=== PATIENT | female | born 1930 | race Caucasian/White ===

== ENCOUNTER → 2016-05-30 | Outpatient (CLI) | payer MEDICARE ==
[~2016-05-30] MED LIST: BACT800T5 PO; BUPR75TA PO; FAMO20TA2 PO; MOBI7.5T PO; SERT-132 PO; THYR1TAB21 PO; TRAZ50TA12 PO
[2016-05-30 14:07] LABS: BLOOD, URINE TRACE (NEG); COMMENT (UR) CULT NOT INDICATED; CULTURE IF INDICATED CULT NOT INDICATED; GLUCOSE,URINE NEG (NEG); HYALINE CAST, URINE 1 /lpf (RARE); KETONE, URINE NEG (NEG); MUCUS URINE FEW /lpf (OCC); NITRITE,URINE NEG (NEG); SQUAMOUS EPITHELIAL CELL URINE <1 /hpf (0-5); URINE COLOR YELLOW (YELLW/STRAW)
== END ==
LOC: CLAB 13:39
PROVIDERS: ATTEND Family Medicine
DX: N39.0 Urinary tract infection, site not specified (principal)
CPT/HCPCS: 81001

== ENCOUNTER 2017-02-12 11:50 | Emergency (ER) | payer MEDICARE ==
[~2017-02-12] VITALS: Ht 154.9 cm; Wt 74.0 kg
[~2017-02-12 11:50] MED LIST changes: -BACT800T5 PO; -BUPR75TA PO; +FLUO-1 PO; -MOBI7.5T PO; +NATU65TA PO; -SERT-132 PO; -THYR1TAB21 PO
[2017-02-12 11:52] VITALS: BP 151/78; PULSE 67; RESP 20; TEMP 97.7; O2SAT 98
[2017-02-12] MEDS ORDERED: ONDANSETRON HCL 4 MG/2 ML VIAL IVP ONE (13:45)
[2017-02-12] MEDS ORDERED: SODIUM CHLORIDE 0.9% FLUSH 10 ML FLUSH IV FLUSH PRN (13:45)
[2017-02-12] MEDS ORDERED: CARA1TAB6 PO (14:35)
[2017-02-12 15:30] LABS: BASOPHIL % 0.5 % (0.0-2.0); EOSINOPHIL # 0.1 TH/MM3 (0-0.4); EOSINOPHIL % 1.8 % (0.0-4.0); HEMATOCRIT 42.1 % (35.0-46.0); HEMO FLAGS DIFF FINAL; LYMPH % 29.9 % (9.0-44.0); MEAN CELL VOLUME 94.9 FL (80.0-100.0); MEAN CORPUSCULAR HEMOGLOBIN 31.3 PG (27.0-34.0); MONO % 9.5 % (0.0-8.0); NEUT % 58.3 % (16.0-70.0); PLATELET COUNT 293 TH/MM3 (150-450); RED BLOOD COUNT 4.44 MIL/MM3 (4.00-5.30); RED CELL DISTRIBUTION WIDTH 14.7 % (11.6-17.2); WHITE BLOOD COUNT 6.8 TH/MM3 (4.0-11.0)
--- NOTE | 2017-02-12 15:41 | RADRPT ---
EXAM DATE/TIME: 02/12/2017 15:30 [facility] COMPARISON: CT BRAIN W/O CONTRAST, March 17, 2016, 19:09. INDICATIONS : Confusion RADIATION DOSE: 33.89 CTDIvol (mGy) MEDICAL HISTORY : None SURGICAL HISTORY : Hysterectomy. ENCOUNTER: Initial ACUITY: 1 day PAIN SCALE: 0/10 LOCATION: cranial TECHNIQUE: Multiple contiguous axial images were obtained of the head. Using automated exposure control and adj ustment of the mA and/or kV according to patient size, radiation dose was kept as low as reasonably a chievable to obtain optimal diagnostic quality images. DICOM format image data is available electro nically for review and comparison. FINDINGS: CEREBRUM: The ventricles are normal for age. No evidence of midline shift, mass lesion, hemorrhage or acute in farction. No extra-axial fluid collections are seen. POSTERIOR FOSSA: The cerebellum and brainstem are intact. The 4th ventricle is midline. The cerebellopontine angle i s unremarkable. EXTRACRANIAL: The visualized portion of the orbits is intact. SKULL: The calvaria is intact. No evidence of skull fracture. CONCLUSION: No acute disease. David Plaza Jr., MD on February 12, 2017 at 15:37 Board Certified Radiologist. This report was verified electronically.
[2017-02-12 15:48] LABS: ALT (GPT) 22 U/L (10-53); ANION GAP 9 MEQ/L (5-15); AST (GOT) 16 U/L (15-37); BICARBONATE 27.4 MEQ/L (21.0-32.0); BLOOD UREA NITROGEN 17 MG/DL (7-18); CHLORIDE 106 MEQ/L (98-107); GLOMERULAR FILTRATION RATE 93 ML/MIN (>89); POTASSIUM 3.8 MEQ/L (3.5-5.1); SODIUM (NA) 142 MEQ/L (136-145)
[2017-02-12 15:50] LABS: ALKALINE PHOSPHATASE 89 U/L (45-117); TOTAL BILIRUBIN ADULT 0.3 MG/DL (0.2-1.0)
[2017-02-12 16:52] LABS: BLOOD, URINE NEG (NEG); COMMENT (UR) CULT NOT INDICATED; CULTURE IF INDICATED CULT NOT INDICATED; GLUCOSE,URINE NEG (NEG); KETONE, URINE NEG (NEG); MUCUS URINE FEW /lpf (OCC); NITRITE,URINE NEG (NEG); PH, URINE 6.5 (5.0-8.5); SQUAMOUS EPITHELIAL CELL URINE <1 /hpf (0-5); URINE COLOR YELLOW (YELLW/STRAW)
--- NOTE | 2017-02-12 17:28 | PD ---
HPI Chief Complaint: Altered Mental Status Time Seen by Provider: 14:27 Travel History International Travel<30 days: No Contact w/Intl Traveler<30days: No Traveled to known affect area: No History of Present Illness HPI And is an 86-year-old female who comes in after her family found her laying face down in her bed. She says that she was feeling very depressed this morning. She says she is going back to the bathroom when she just fell onto the bed and didn't feel like. She says she may have had some dizziness at the time. But says she was mostly just feeling depressed. Her stepdaughter reports that she has been battling depression for a while and has been seeing psychiatrists. She does report that she will stop eating or drinking due to her depression. She has not made any active threats or attempts to kill herself. She denies any thoughts of wanting to hurt herself or anyone else. She says she is feeling fine now. She has no pain anywhere. She did not hit her head. She denies any blurred vision or chest pain. She denies any shortness of breath or burning when she urinates. [facility] Past Medical History Depression: Yes Diminished Hearing: Yes (bilateral hearing aides) Gastrointestinal Disorders: Yes ("GI PARASITE" 1 YEAR AGO CAUSING DIARRHEA) Immunizations Current: Yes Thyroid Disease: Yes (hypodthyroidism) Menopausal: Yes Past Surgical History Hysterectomy: Yes Other Surgery: Yes (hand surgery) Social History Alcohol Use: Yes (wine with dinner sometimes) Tobacco Use: No Substance Use: No Allergies-Medications (Allergen,Severity, Reaction): Coded Allergies: No Known Allergies (Unverified Adverse Reaction, Unknown, 02/12/17) Reported Meds & Prescriptions Reported Meds & Active Scripts Active Reported Carafate (Sucralfate) 1 Gram Tab 1 Gm PO FIVE TIMES PER DAY On empty stomach Prozac (Fluoxetine HCl) 10 Mg Cap 10 Mg PO DAILY Trazodone (Trazodone HCl) 50 Mg Tab 25 Mg PO HS Nature-Throid (Thyroid) 65 Mg Tab 65 Mg PO DAILY Review of Systems Except as stated in HPI: all other systems reviewed are Neg General / Constitutional: No: Fever, Chills Eyes: No: Blurred Vision HENT: Positive: Lightheadedness, No: Headaches Cardiovascular: No: Chest Pain or Discomfort Respiratory: No: Shortness of Breath Gastrointestinal: No: Nausea, Vomiting Genitourinary: No: Dysuria Skin: No Rash, No Change in Pigmentation Neurologic: No: Weakness Physical Exam Narrative GENERAL: Awake and alert, in no acute distress. SKIN: Focused skin assessment warm/dry. HEAD: Atraumatic. Normocephalic. EYES: Pupils equal and round and reactive. No scleral icterus. Extraocular movements intact. ENT: Mucous membranes pink and moist. NECK: Trachea midline. No JVD. CARDIOVASCULAR: Regular rate and rhythm. No murmur appreciated. RESPIRATORY: No accessory muscle use. Clear to auscultation. Breath sounds equal bilaterally. GASTROINTESTINAL: Abdomen soft, non-tender, nondistended. MUSCULOSKELETAL: No obvious deformities. No clubbing. No cyanosis. No edema. NEUROLOGICAL: Awake and alert. No obvious cranial nerve deficits. Motor grossly within normal limits. Normal speech. PSYCHIATRIC: Appropriate mood and affect; insight and judgment normal. Data Data Last Documented VS Vital Signs Date Time Temp Pulse Resp B/P (MAP) Pulse Ox O2 Delivery O2 Flow Rate FiO2 02/12/17 11:52 97.7 67 20 151/78 (102) 98 Room Air Orders Orders Complete Blood Count With Diff (02/12/17 13:38) Comprehensive Metabolic Panel (02/12/17 13:38) Lipase (02/12/17 13:38) Lactic Acid (02/12/17 13:38) Urinalysis - C+S If Indicated (02/12/17 13:38) Iv Access Insert/Monitor (02/12/17 13:38) Ondansetron Inj (Zofran Inj) (02/12/17 13:45) Sodium Chloride 0.9% Flush (Ns Flush) (02/12/17 13:45) Electrocardiogram (02/12/17 ) Troponin I (02/12/17 15:03) Ct Brain W/O Iv Contrast(Rout) (02/12/17 ) Labs Laboratory Tests Test 02/12/17 15:10 White Blood Count 6.8 TH/MM3 Red Blood Count 4.44 MIL/MM3 Hemoglobin 13.9 GM/DL Hematocrit 42.1 % Mean Corpuscular Volume 94.9 FL Mean Corpuscular Hemoglobin 31.3 PG Mean Corpuscular Hemoglobin Concent 33.0 % Red Cell Distribution Width 14.7 % Platelet Count 293 TH/MM3 Mean Platelet Volume 7.6 FL Neutrophils (%) (Auto) 58.3 % Lymphocytes (%) (Auto) 29.9 % Monocytes (%) (Auto) 9.5 % Eosinophils (%) (Auto) 1.8 % Basophils (%) (Auto) 0.5 % Neutrophils # (Auto) 4.0 TH/MM3 Lymphocytes # (Auto) 2.0 TH/MM3 Monocytes # (Auto) 0.6 TH/MM3 Eosinophils # (Auto) 0.1 TH/MM3 Basophils # (Auto) 0.0 TH/MM3 CBC Comment DIFF FINAL Differential Comment Urine Color YELLOW Urine Turbidity CLEAR Urine pH 6.5 Urine Specific [place] 1.018 Urine Protein NEG mg/dL Urine Glucose (UA) NEG mg/dL Urine Ketones NEG mg/dL Urine Occult Blood NEG Urine Nitrite NEG Urine Bilirubin NEG Urine Urobilinogen LESS THAN 2.0 MG/DL Urine Leukocyte Esterase NEG Urine RBC LESS THAN 1 /hpf Urine WBC 1 /hpf Urine Squamous Epithelial Cells <1 /hpf Urine Mucus FEW /lpf Microscopic Urinalysis Comment CULT NOT INDICATED Blood Urea Nitrogen 17 MG/DL Creatinine 0.61 MG/DL Random Glucose 101 MG/DL Total Protein 7.3 GM/DL Albumin 3.5 GM/DL Calcium Level 8.6 MG/DL Alkaline Phosphatase 89 U/L Aspartate Amino Transf (AST/SGOT) 16 U/L Alanine Aminotransferase (ALT/SGPT) 22 U/L Total Bilirubin 0.3 MG/DL Sodium Level 142 MEQ/L Potassium Level 3.8 MEQ/L Chloride Level 106 MEQ/L Carbon Dioxide Level 27.4 MEQ/L Anion Gap 9 MEQ/L Estimat Glomerular Filtration Rate 93 ML/MIN Lactic Acid Level 0.7 mmol/L Troponin I LESS THAN 0.02 NG/ML Lipase 192 U/L [facility] Medical Decision Making Medical Screen Exam Complete: Yes Emergency Medical Condition: Yes Medical Record Reviewed: Yes Interpretation(s) ECG shows normal sinus rhythm, no ST elevation or depression, first-degree AV block. Differential Diagnosis Electrolytes abnormality versus UTI versus depression versus dehydration Narrative Course Patient is an 86-year-old female who comes in after her family found her laying face down on the bed. She has no complaints at this time. She does admit she was feeling depressed at the time. She denies any suicidal ideation. IV established, labs sent. Labs show no acute abnormalities. Electrolytes are within normal limits, troponin is negative. CT head performed shows no acute abnormalities. Urinalysis is negative for UTI. Spoke with the stepdaughter who lives with her who is comfortable taking her home at this time. She'll follow-up with her psychiatrist. She is advised to return as needed for any worsening symptoms. 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 Make sure you drink plenty of fluids and eat regularly. Return to the ED as needed for any worsening symptoms. Disposition: 01 DISCHARGE HOME Condition: Stable Elsie Shepherd MD Feb 12, 2017 17:28
--- NOTE | 2017-02-13 16:19 | EKG ---
Date Performed: 02/12/2017 Time Performed: 15:47:02 PTAGE: 86 years EKG: Sinus rhythm WITH FIRST DEGREE AV BLOCK ABNORMAL ECG PREVIOUS TRACING : 09/04/2015 20.38 Compared to prior tracing no significant change DOCTOR: Roz Rodriguez Interpretating Date/Time 02/13/2017 16:18:41
[2017-02-26] MEDS ORDERED: NATU65TA PO (10:21)
== END 2017-02-12 18:11 | disposition home or self-care (01) ==
LOC: NEPC 11:50
DX: F32.9 Major depressive disorder, single episode, unspecified (principal); I44.0 Atrioventricular block, first degree; R42 Dizziness and giddiness; E03.9 Hypothyroidism, unspecified; R94.31 Abnormal electrocardiogram [ECG] [EKG]
CPT/HCPCS: 70450; 80053; 81001; 83605; 83690; 84484; 85025; 93005; 96374; 99285; J2405

== ENCOUNTER 2017-05-05 22:57 | Emergency (ER) | payer MEDICARE, OTHER ==
[~2017-05-05 22:57] MED LIST changes: +CARA1TAB6 PO; -FAMO20TA2 PO; -FLUO-1 PO
[2017-05-05 22:59] VITALS: BP 138/85; PULSE 111; RESP 18; TEMP 98.1; O2SAT 94
[2017-05-05 23:40] VITALS: O2SAT 100
--- NOTE | 2017-05-05 23:41 | PD ---
HPI Chief Complaint: Dizziness Time Seen by Provider: 23:20 Travel History International Travel<30 days: No Contact w/Intl Traveler<30days: No Traveled to known affect area: No History of Present Illness HPI The patient is an 86 year old female who presents to the [facility] emergency department with a history of reportedly going to bed at 10:15 PM on Friday night and not getting up again to eat or drink until 8:30 PM today. The patient is accompanied to this emergency department visit by a family member. The family member reports that this is a frequent occurrence for the patient when she has depression. Her primary care physician, Dr. To has been assisting with the patient's care and has recently titrated up the patient' s trazodone from 50 mg up to 150 mg. The patient has been on the increased dose for the last 13 days. When the patient was made to get up to eat, shortly after drinking some soup the patient began to have nausea, vomiting, diarrhea. The patient's family member reports that when they do try to rehydrate her it is not unusual for her to have diarrhea, however they became concerned when she became tachycardic and more weak. She denies having any recent fevers or chills , cough or congestion, neck pain, chest pain, shortness of breath, urinary symptoms, one-sided weakness, slurred speech, facial droop, numbness or tingling to her extremities, or difficulty with word finding ability. The patient denies having suicidal thoughts or plan, however the patient reports that she "just wants to sleep". 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 The patient has a history of a hiatal hernia, scoliosis, anorexia since 2014, and hypothyroid disorder. Depression: Yes Diminished Hearing: Yes (bilateral hearing aides) Gastrointestinal Disorders: Yes ("GI PARASITE" 1 YEAR AGO CAUSING DIARRHEA) Immunizations Current: Yes Thyroid Disease: Yes (hypodthyroidism) Tetanus Vaccination: > 5 Years Influenza Vaccination: No ?: Not Menopausal: Yes Past Surgical History Narrative Surgical The patient's past surgical history is significant for partial hysterectomy, wrist surgery, multiple upper endoscopies. Hysterectomy: Yes Other Surgery: Yes (hand surgery) Social History Alcohol Use: Yes (wine with dinner sometimes) Tobacco Use: No Substance Use: No Allergies-Medications (Allergen,Severity, Reaction): Coded Allergies: No Known Allergies (Verified Adverse Reaction, Unknown, 05/05/17) Reported Meds & Prescriptions Reported Meds & Active Scripts Active Trazodone (Trazodone HCl) 50 Mg Tab 150 Mg PO HS Nature-Throid (Thyroid) 65 Mg Tab 65 Mg PO DAILY Reported Carafate (Sucralfate) 1 Gram Tab 1 Gm PO FIVE TIMES PER DAY On empty stomach Review of Systems Except as stated in HPI: all other systems reviewed are Neg General / Constitutional: No: Fever Eyes: No: Visual changes HENT: No: Headaches Cardiovascular: No: Chest Pain or Discomfort Respiratory: No: Shortness of Breath Gastrointestinal: Positive: Nausea, Vomiting, Diarrhea, Abdominal Pain ( Epigastric), Changes in Bowel Habits, Indigestion, Loss of Appetite Genitourinary: No: Dysuria Musculoskeletal: No: Pain Skin: No Rash Neurologic: Positive: Weakness (Generalized weakness), Dizziness, No: Focal Abnormalities, Change in Mentation, Slurred Speech, Sensory Disturbance Psychiatric: Positive: Depression, Mood Disorder, No: Suicidal Ideations, Substance Abuse Endocrine: No: Polydipsia Hematologic/Lymphatic: No: Easy Bruising Physical Exam Narrative General: The patient is a well-developed well-nourished female in no acute distress. Head and Neck exam: Head is normocephalic atraumatic. Eyes: EOMI, pupils are equal round and reactive to light. Nose: Midline septum with pink mucous membranes Mouth: Dentition unremarkable. Moist mucus membranes. Posterior oropharynx is not erythematous. No tonsillar hypertrophy. Uvula midline. Airway patent. Neck: No palpable lymphadenopathy. No nuchal rigidity. No thyromegaly. Cardiovascular: Sinus tachycardia in the low 100 without murmurs, gallops, or rubs. No pulse deficits to the extremities on simultaneous auscultation and palpation of her radial artery. Lungs: Clear to auscultation bilaterally. No wheezes, rhonchi, or rales. Abdomen: Soft, with tenderness on palpation of the midepigastric area, no tenderness on palpation of McBurney's point. No other tenderness on palpation of the other quadrants of the abdomen. Negative Gibbons sign. Normal bowel sounds are audible. No guarding, rebound, or rigidity. Extremities: No clubbing, cyanosis, or edema. 2+ pulses in all 4 extremities. Back: No spinous process tenderness to palpation. No costovertebral angle tenderness to palpation. Neurologic Exam: Grossly nonfocal. Skin Exam: No rash noted. Intact skin that is warm and dry. Data Data Last Documented VS Vital Signs Date Time Temp Pulse Resp B/P (MAP) Pulse Ox O2 Delivery O2 Flow Rate FiO2 05/06/17 01:11 74 18 171/77 (108) 97 Room Air 05/05/17 22:59 98.1 Orders Orders Electrocardiogram (05/05/17 23:34) Complete Blood Count With Diff (05/05/17 23:34) Comprehensive Metabolic Panel (05/05/17 23:34) Creatine Kinase (Cpk) (05/05/17 23:34) Ckmb (Isoenzyme) Profile (05/05/17 23:34) Troponin I (05/05/17 23:34) B-Type Natriuretic Peptide (05/05/17 23:34) Prothrombin Time / Inr (Pt) (05/05/17 23:34) Act Partial Throm Time (Ptt) (05/05/17 23:34) Lipase (05/05/17 23:34) Urinalysis - C+S If Indicated (05/05/17 23:34) Magnesium (Mg) (05/05/17 23:34) Thyroid Stimulating Hormone (05/05/17 23:34) Chest, Single Ap (05/05/17 23:34) Iv Access Insert/Monitor (05/05/17 23:34) Ecg Monitoring (05/05/17 23:34) Oximetry (05/05/17 23:34) Sodium Chlor 0.9% 1000 Ml Inj (Ns 1000 M (05/05/17 23:45) Thiamine Inj (Thiamine Inj) (05/05/17 23:45) Ondansetron Inj (Zofran Inj) (05/06/17 00:45) Psych Screen (05/06/17 00:48) Labs Laboratory Tests Test 05/05/17 23:45 05/06/17 01:00 White Blood Count 7.9 TH/MM3 Red Blood Count 4.66 MIL/MM3 Hemoglobin 15.6 GM/DL Hematocrit 43.8 % Mean Corpuscular Volume 93.9 FL Mean Corpuscular Hemoglobin 33.4 PG Mean Corpuscular Hemoglobin Concent 35.6 % Red Cell Distribution Width 13.8 % Platelet Count 327 TH/MM3 Mean Platelet Volume 7.0 FL Neutrophils (%) (Auto) 65.4 % Lymphocytes (%) (Auto) 22.6 % Monocytes (%) (Auto) 10.5 % Eosinophils (%) (Auto) 0.5 % Basophils (%) (Auto) 1.0 % Neutrophils # (Auto) 5.2 TH/MM3 Lymphocytes # (Auto) 1.8 TH/MM3 Monocytes # (Auto) 0.8 TH/MM3 Eosinophils # (Auto) 0.0 TH/MM3 Basophils # (Auto) 0.1 TH/MM3 CBC Comment DIFF FINAL Differential Comment Prothrombin Time 10.9 SEC Prothromb Time International Ratio 1.1 RATIO Activated Partial Thromboplast Time 23.7 SEC Blood Urea Nitrogen 18 MG/DL Creatinine 1.15 MG/DL Random Glucose 168 MG/DL Total Protein 7.4 GM/DL Albumin 3.5 GM/DL Calcium Level 8.4 MG/DL Magnesium Level 2.3 MG/DL Alkaline Phosphatase 85 U/L Aspartate Amino Transf (AST/SGOT) 14 U/L Alanine Aminotransferase (ALT/SGPT) 18 U/L Total Bilirubin 0.4 MG/DL Sodium Level 142 MEQ/L Potassium Level 4.3 MEQ/L Chloride Level 108 MEQ/L Carbon Dioxide Level 27.7 MEQ/L Anion Gap 6 MEQ/L Estimat Glomerular Filtration Rate 45 ML/MIN Total Creatine Kinase 76 U/L Troponin I LESS THAN 0.02 NG/ML B-Type Natriuretic Peptide 72 PG/ML Lipase 170 U/L Thyroid Stimulating Hormone 3rd Gen 2.300 uIU/ML Urine Color YELLOW Urine Turbidity CLEAR Urine pH 7.0 Urine Specific [place] 1.016 Urine Protein NEG mg/dL Urine Glucose (UA) NEG mg/dL Urine Ketones NEG mg/dL Urine Occult Blood NEG Urine Nitrite NEG Urine Bilirubin NEG Urine Urobilinogen LESS THAN 2.0 MG/DL Urine Leukocyte Esterase TRACE Urine RBC 1 /hpf Urine WBC 4 /hpf Urine Squamous Epithelial Cells <1 /hpf Urine Hyaline Casts 1 /lpf Urine Mucus FEW /lpf Microscopic Urinalysis Comment CULT NOT INDICATED MDM Medical Decision Making Medical Screen Exam Complete: Yes Emergency Medical Condition: Yes Medical Record Reviewed: Yes Interpretation(s) Last Impressions Chest X-Ray 05/05/17 8264 Signed Impressions: Service Date/Time: Friday, May 05, 2017 23:43 - CONCLUSION: Underinflated examination with atelectasis at the lung bases. Otherwise, no acute finding is identified. Matthew Fermin MD Differential Diagnosis Dehydration, versus electrolyte derangements, versus depression, versus gastroenteritis, versus gastroparesis Narrative Course During the course of the patient's emergency department visit, the patient's history, examination, and differential diagnosis were reviewed with the patient. The patient was placed on a cardiac cath rn with oximetry and frequent blood pressure monitoring. The patient had IV access obtained and blood work sent for analysis. The patient had an EKG done that shows a sinus rhythm with a heart rate of 99, QRS duration is 85 ms, QTC 385 ms, no acute ST segment elevation. The patient was initially provided normal saline 1 L IV fluid bolus, thiamine 100 mg IV, Zofran 4 mg IV. She was started on oral rehydration therapy and tolerating it well. The patient's laboratory studies were reviewed and remarkable for a white count of 7.9, hemoglobin 15.6, platelets 327 with 10.5 monocytes, CMP is remarkable for a chloride of 108, creatinine 1.15, glucose 168, calcium 8.4, AST 14, CPK 76 , troponin I less than 0.02, BNP 72, lipase 170, TSH within normal limits at 2.3 , PT 10.9, PTT 23.7, urinalysis is unremarkable Radiology studies were reviewed and remarkable for a chest x-ray that shows underinflated examination with atelectasis at the lung bases, otherwise no acute findings identified The patient's results were discussed with her. The patient is agreeable with the plan to proceed with psychiatric screen for further evaluation and treatment of her depression. The patient has been medically cleared for psychiatric evaluation. Diagnosis Primary Impression: Depression Qualified Codes: F33.2 - Major depressive disorder, recurrent severe without psychotic features Additional Impression: Mild dehydration Nicky Garcia MD May 05, 2017 23:41
[2017-05-05] MEDS ORDERED: SODIUM CHLOR 0.9% 1000 ML INJ 1,000 ML IV ONE (23:45)
[2017-05-05] MEDS ORDERED: THIAMINE INJ 100 MG in SODIUM CHLORIDE 0.9% INJ 100 ML IV ONE (23:45)
--- NOTE | 2017-05-05 23:54 | RADRPT ---
EXAM DATE/TIME: 05/05/2017 23:43 [facility] COMPARISON: No previous studies available for comparison. INDICATIONS : Short of breath. MEDICAL HISTORY : None. SURGICAL HISTORY : None. ENCOUNTER: Initial ACUITY: 1 day PAIN SCORE: 0/10 LOCATION: Bilateral chest FINDINGS: Underinflated portable AP view of the chest with a normal size cardiac silhouette and calcification o f the aorta. There is atelectasis at the lung bases. No pleural effusion, airspace consolidation, or pneumothorax is identified. The bones and soft tissues demonstrate no acute finding. CONCLUSION: Underinflated examination with atelectasis at the lung bases. Otherwise, no acute finding is identifi ed. Matthew Fermin MD on May 05, 2017 at 23:50 Board Certified Radiologist. This report was verified electronically.
[2017-05-05 23:58] LABS: AUTOMATED NEUTROPHIL # 5.2 TH/MM3 (1.8-7.7); BASOPHIL # 0.1 TH/MM3 (0-0.2); EOSINOPHIL % 0.5 % (0.0-4.0); HEMATOCRIT 43.8 % (35.0-46.0); HEMOGLOBIN 15.6 GM/DL (11.6-15.3); LYMPH % 22.6 % (9.0-44.0); LYMPHOCYTE # 1.8 TH/MM3 (1.0-4.8); MEAN CELL VOLUME 93.9 FL (80.0-100.0); MEAN CORPUSCULAR HEMOGLOBIN 33.4 PG (27.0-34.0); MEAN CORPUSCULAR HGB CONC 35.6 % (32.0-36.0); MONO % 10.5 % (0.0-8.0); MONOCYTE # 0.8 TH/MM3 (0-0.9); NEUT % 65.4 % (16.0-70.0); PLATELET COUNT 327 TH/MM3 (150-450); RED BLOOD COUNT 4.66 MIL/MM3 (4.00-5.30); RED CELL DISTRIBUTION WIDTH 13.8 % (11.6-17.2); WHITE BLOOD COUNT 7.9 TH/MM3 (4.0-11.0)
[2017-05-06 00:14] LABS: ALBUMIN 3.5 GM/DL (3.4-5.0); ALT (GPT) 18 U/L (10-53); AST (GOT) 14 U/L (15-37); BICARBONATE 27.7 MEQ/L (21.0-32.0); BLOOD UREA NITROGEN 18 MG/DL (7-18); CALCIUM 8.4 MG/DL (8.5-10.1); CHLORIDE 108 MEQ/L (98-107); CREATININE 1.15 MG/DL (0.50-1.00); GLOMERULAR FILTRATION RATE 45 ML/MIN (>89); GLUCOSE,RANDOM 168 MG/DL (74-106); MAGNESIUM 2.3 MG/DL (1.5-2.5); SODIUM (NA) 142 MEQ/L (136-145)
[2017-05-06 00:16] LABS: INTERNATIONAL NORMALIZED RATIO 1.1 RATIO; PROTHROMBIN TIME - PATIENT 10.9 SEC (9.8-11.6)
[2017-05-06 00:23] LABS: ALKALINE PHOSPHATASE 85 U/L (45-117); TOTAL BILIRUBIN ADULT 0.4 MG/DL (0.2-1.0); TOTAL PROTEIN 7.4 GM/DL (6.4-8.2); TROPONIN I LESS THAN 0.02 NG/ML (0.02-0.05)
[2017-05-06] MEDS ORDERED: ONDANSETRON HCL 4 MG/2 ML VIAL IV PUSH ONE (00:45)
[2017-05-06 01:11] VITALS: BP 171/77; PULSE 74; RESP 18; O2SAT 97
[2017-05-06 01:17] LABS: BILIRUBIN, URINE NEG (NEG); BLOOD, URINE NEG (NEG); GLUCOSE,URINE NEG (NEG); HYALINE CAST, URINE 1 /lpf (RARE); KETONE, URINE NEG (NEG); MUCUS URINE FEW /lpf (OCC); NITRITE,URINE NEG (NEG); SQUAMOUS EPITHELIAL CELL URINE <1 /hpf (0-5); URINE COLOR YELLOW (YELLW/STRAW); URINE LEUKOCYTE ESTERASE TRACE (NEG)
[2017-05-06] MEDS ORDERED: ACETAMINOPHEN 325 MG TAB PO ONE (03:15)
--- NOTE | 2017-05-06 16:09 | EKG ---
Date Performed: 05/05/2017 Time Performed: 23:38:25 PTAGE: 86 years EKG: Sinus rhythm WITH FIRST DEGREE AV BLOCK POSSIBLE RIGHT VENTRICULAR CONDUCTION DELAY ABNORMAL ECG Since the prior tracing, there has been no significant change PREVIOUS TRACING : 02/12/2017 15.47 DOCTOR: Riddhi Tomlin Interpretating Date/Time 05/06/2017 16:07:28
== END 2017-05-06 04:41 | disposition home or self-care (01) ==
LOC: NEPE 22:57
DX: F33.2 Major depressive disorder, recurrent severe without psychotic features (principal); E86.0 Dehydration; E03.9 Hypothyroidism, unspecified; R00.0 Tachycardia, unspecified; R06.02 Shortness of breath
CPT/HCPCS: 71045; 80053; 81001; 82550; 83690; 83735; 83880; 84443; 84484; 85025; 85610; 85730; 93005; 96365; 96375; 99285; J2405; J3411; J7030

== ENCOUNTER 2017-11-04 14:33 | Observation (INO) ==
[2017-11-04] MEDS ORDERED: Sod Chloride 0.9% Inj 1,000 ML IV.SIG ONE (21:00)
[2017-11-04 21:08] LABS: Baso # (Auto) 0.1 th/mm3 (0.0-0.2); Baso % (Auto) 0.9 % (0.0-2.0); Eos # (Auto) 0.1 th/mm3 (0.0-0.4); Eos % (Auto) 1.5 % (0.0-4.0); Hematocrit 44.2 % (35.0-46.0); Lymph # (Auto) 2.6 th/mm3 (1.0-4.8); Lymph % (Auto) 39.8 % (9.0-44.0); Mean Corpuscular Hemoglobin 32.7 pg (27.0-34.0); Mean Corpuscular Volume 95.9 fL (80.0-100.0); Mean Platelet Volume 7.6 fL (7.0-11.0); Mono # (Auto) 0.6 th/mm3 (0.0-0.9); Mono % (Auto) 8.6 % (0.0-8.0); Neut # (Auto) 3.2 th/mm3 (1.8-7.7); Neut % (Auto) 49.2 % (16.0-70.0); Platelet Count 340 th/mm3 (150-450); Red Blood Count 4.61 mil/mm3 (4.00-5.30); Red Cell Distribution Width 13.9 % (11.6-17.2); White Blood Count 6.4 th/mm3 (4.0-11.0)
[2017-11-04 21:23] LABS: Anion Gap 10 meq/L (5-15); Aspartate Aminotransferase 19 U/L (15-37); Blood Urea Nitrogen 20 mg/dL (7-18); Calcium 9.8 mg/dL (8.5-10.1); Carbon Dioxide 27.4 meq/L (21.0-32.0); Chloride 102 meq/L (98-107); Glomerular Filtration Rate 79 mL/min (>89); Glucose,Random 99 mg/dL (74-106); Potassium 3.9 meq/L (3.5-5.1); Sodium 139 meq/L (136-145)
[2017-11-04 21:24] LABS: Alanine Aminotransferase 32 U/L (10-53)
[2017-11-04 21:27] LABS: Amorphous Sediment,Urine Few /hpf; Bacteria,Urine Many /hpf; Bilirubin,Urine Negative (Negative); Clarity,Urine Turbid (Clear); Color,Urine Amber (Yellw/Straw); Glucose,Urine (UA) Negative (Negative); Leukocyte Esterase,Urine Moderate (Negative); Nitrite,Urine Negative (Negative); Specific Gravity,Urine 1.019 (1.002-1.035); Squamous Epithelial Cell,Urine <1 /hpf (0-5); Triple Phosphate Crystal,Urine Few /hpf
[2017-11-04 21:34] LABS: Alkaline Phosphatase 91 U/L (45-117); Thyroid Stimulating Hormone 0.159 uIU/mL (0.358-3.740); Total Protein 8.3 g/dL (6.4-8.2)
[2017-11-04 23:55] LABS: Free T4 (Free Thyroxine) 1.36 ng/dL (0.76-1.46); Triiodothyronine (T3) Free 3.82 pg/mL (2.18-3.98)
[2017-11-04] MEDS ORDERED: Senna/Docusate Sodium 8.6/50 MG Tablet PO PRN (23:56)
[2017-11-04] MEDS ORDERED: Bisacodyl 10 MG Supp RECTAL PRN (23:56)
[2017-11-04] MEDS ORDERED: Temazepam 15 MG Capsule PO PRN (23:56)
--- NOTE | 2017-11-04 23:59 | P.HPFP ---
History of Present Illness Service: UTI and major depression Primary Care Physician: Pillo To MD Chief Complaint: decreased urine output and major depressive sxs History of Present Illness: Patient is a 87-year-old female with past medical history of depression, eating disorder and hypothyroid was brought into the ED by her stepdaughter due to symptoms of decreased urine output and poor p.o. intake. Step-daughter (Ale) at bedside provided majority of history. For the past 9 days the patient has remained in bed and has had minimal p.o. intake. Ale reports that throughout this time the patient has had a total of about "33 ounces of fluid and a couple of bananas". For the past several of days patient also reports burning with urination and increased urge to urinate however she was only able to put out a couple of drops of urine. Ale states that the patient minimizes her symptoms and today was the first time the pt told her about the difficulties with urination. This was the reason the she decided to bring the patient to the ED for further evaluation of infection. Patient denies any chest pain, shortness of breath, palpitations, headache, abdominal or back pain, foul smelling urine, fever, chills, nausea/ vomiting or gait disturbances. Of note patient has been on Abilify 5 mg daily for the past 3 weeks for her depression with no significant change in mood. Ale reports that the patient still has no motivation to take care of herself or engage in things that she used to like doing. Patient has had a long history of depression which has been steadily worsening over the last 4 years. Patient has also had weight fluctuations due to her low appetite. Most recent weight was 151 lbs taken at home today. She denies suicidal ideation, homicidal ideation or feelings of guilt. Endorses loss of interest and appetite, low energy, difficulties with concentration, and psychomotor retardation. For her depression counseling pt follows with Izabella Arita but has not gone to therapy in the past 2 months. She is awake, alert and oriented x2 (self and location). Patient ambulates independently without the need for assistive devices. She lives with her stepdaughter who helps take care of her and assist in ADLs. - Diagnosis (1) UTI (urinary tract infection) (2) Major depression (3) Hypothyroid (4) Nutrition, metabolism, and development symptoms Review of Systems All other systems reviewed negative except as stated in HPI PMFSH - History History Provided By: Patient, Family Member - Medical History Medical History: Medical History (Last Reviewed 11/05/17 @ 02:12 by Carl Blue MD, R2) Eating disorder in remission Hypothyroid Manic depressive disorder - Surgical History Surgical History: Surgical History (Last Updated 11/05/17 @ 02:15 by Carl Blue MD, R2) History of esophagogastroduodenoscopy (EGD) History of partial hysterectomy - Family History Family History: Family History (Last Updated 11/05/17 @ 02:17 by Carl Blue MD, R2) Sister Depression Sister Depression Sister Depression Mother COPD (chronic obstructive pulmonary disease) Mother CHF (congestive heart failure) - Tobacco History Second Hand Smoke Exposure: No Smoking Status: Former smoker (quit > 40 yrs ago) - Alcohol History How Often Do You Have a Drink Containing Alcohol: Monthly or less - Travel History Recent Travel in the [facility] Within the Last 8 Weeks: No Recent Travel Out of the Country Within the Last 8 Weeks: No - Immunization History Tetanus Immunization: Unsure Medications and Allergies Allergies Allergy/AdvReac Type Severity Reaction Status Date / Time No Known Allergies AdvReac Unknown Uncoded 05/05/17 23:17 Home Medications Medication Instructions Recorded Confirmed Type aripiprazole [Abilify] 5 mg PO DAILY 11/04/17 11/04/17 History thyroid (pork) [Nature-Throid] 65 mg PO DAILY 11/04/17 11/04/17 History Exam Vital signs: Vital Signs 11/04/17 14:39 Temperature 98.2 F Pulse Rate 103 H Respiratory Rate 18 Blood Pressure 164/74 H Pulse Oximetry 97 Intake & Output 11/04/17 11/04/17 11/05/17 06:59 18:59 06:59 Weight 73.482 kg - Constitutional no acute distress, average body habitus - Routine HEENT Exam Head: Present: normocephalic Eye: Present: EOMI, PERRL ENT: Present: mucous membranes dry - Routine Neck Exam Present: supple, full ROM. Absent: JVD, lymphadenopathy, thyromegaly - Routine Chest/Breast/Axilla Exam Chest wall: Absent: tenderness - Routine Respiratory Exam Present: CTA bilaterally. Absent: accessory muscle use - Routine Cardiovascular Exam Present: RRR, S1, S2. Absent: murmur, gallop, rubs - Routine Abdominal Exam Present: soft, normoactive bowel sounds. Absent: tenderness, distended, rebound , guarding Comments: No CVA tenderness bilaterally. - Routine Extremities Exam Present: pulses intact, normal capillary refill. Absent: cyanosis, clubbing, edema, full ROM, calf tenderness - Routine Skin Exam Present: intact - Routine Neurological Exam Present: alert (AAOx2 (self and location), baseline per step daughter), normal reflexes, moving all extremities, normal tone patient is cooperative and pleasant. Results - Labs Result diagrams: 11/04/17 20:50 11/04/17 20:50 Abnormal lab results 11/04/17 11/04/17 11/04/17 Range/Units 20:45 20:50 20:50 [place] % (Auto) 8.6 H (0.0-8.0) % BUN 20 H (7-18) mg/dL Estimated GFR 79 L (>89) mL/min Total Protein 8.3 H (6.4-8.2) g/dL TSH 0.159 L (0.358-3.740) uIU/mL Urine Clarity Turbid H (Clear) Urine Protein 30 H (Neg-Trace) mg/dL Urine Ketones Trace H (Negative) mg/dL Ur Leukocyte Esterase Moderate H (Negative) Urine WBC 87 H (0-5) /hpf Triple Phos Crystals Few H (None) /hpf Amorphous Sediment Few H (None) /hpf Urine Bacteria Many H (None) /hpf Short CBC 11/04/17 Range/Units 20:50 WBC 6.4 (4.0-11.0) th/mm3 Hgb 15.0 (11.6-15.3) gm/dL Hct 44.2 (35.0-46.0) % Plt Count 340 (150-450) th/mm3 BMP 11/04/17 20:50 Sodium 139 Potassium 3.9 Chloride 102 Carbon Dioxide 27.4 BUN 20 H Creatinine 0.70 Calcium 9.8 Liver Function 11/04/17 Range/Units 20:50 Total Bilirubin 0.7 (0.2-1.0) mg/dL AST 19 (15-37) U/L ALT 32 (10-53) U/L Alkaline Phosphatase 91 (45-117) U/L Albumin 4.0 (3.4-5.0) g/dL Urine 11/04/17 Range/Units 20:45 Urine Color Faina (Yellw/Straw) Urine Clarity Turbid H (Clear) Urine pH 8.0 (5.0-8.5) Ur Specific [place] 1.019 (1.002-1.035) Urine Protein 30 H (Neg-Trace) mg/dL Urine Glucose (UA) Negative (Negative) mg/dL Caprini VTE Risk Assessment Caprini VTE Risk Assessment: Moderate/High Risk (score >= 2) Caprini Risk Assessment Model: Point Value = 1 Point Value = 2 Point Value = 3 Point Value = 5 Age 41-60 Minor surgery BMI > 25 kg/m2 Swollen legs Varicose veins or History of unexplained or recurrent spontaneous Oral contraceptives or hormone replacement Sepsis (< 1 month) Serious lung disease, including pneumonia (< 1 month) Abnormal pulmonary function Acute myocardial infarction Congestive heart failure (< 1 month) History of inflammatory bowel disease Medical patient at bed rest Age 61-74 Arthroscopic surgery Major open surgery (> 45 min) Laparoscopic surgery (> 45 min) Malignancy Confined to bed (> 72 hours) Immobilizing plaster cast Central venous access Age >= 75 History of VTE Family history of VTE Factor V Leiden Prothrombin [id number] Lupus anticoagulant Anticardiolipin antibodies Elevated serum homocysteine Heparin-induced thrombocytopenia Other congenital or acquired thrombophilia Stroke (< 1 month) Elective arthroplasty Hip, pelvis, or leg fracture Acute spinal cord injury (< 1 month) Prophylaxis Regimen: Total Risk Factor Score Risk Level Prophylaxis Regimen 0-1 Low Early ambulation 2 Moderate Order ONE of the following: *Sequential Compression Device (SCD) *Heparin 5000 units SQ BID 3-4 Higher Order ONE of the following medications: *Heparin 5000 units SQ TID *Enoxaparin/Lovenox 40 mg SQ daily (WT < 150 kg, CrCl > 30 mL/min) *Enoxaparin/Lovenox 30 mg SQ daily (WT < 150 kg, CrCl > 10-29 mL/min) *Enoxaparin/Lovenox 30 mg SQ BID (WT < 150 kg, CrCl > 30 mL/min) AND/OR *Sequential Compression Device (SCD) 5 or more Highest Order ONE of the following medications: *Heparin 5000 units SQ TID (Preferred with Epidurals) *Enoxaparin/Lovenox 40 mg SQ daily (WT < 150 kg, CrCl > 30 mL/min) *Enoxaparin/Lovenox 30 mg SQ daily (WT < 150 kg, CrCl > 10-29 mL/min) *Enoxaparin/Lovenox 30 mg SQ BID (WT < 150 kg, CrCl > 30 mL/min) AND *Sequential Compression Device (SCD) Assessment and Plan - Assessment (1) UTI (urinary tract infection) Code(s): N39.0 - Urinary tract infection, site not specified Status: Acute Plan: Patient with history of dysuria, increased urgency and decreased urine output for several days associated with decreased p.o. intake. Afebrile, white blood cell counts within normal limits On admission slight tachycardia 103 and elevated blood pressure at 164/75 UA: Moderate leukocyte esterase and urine white blood cells 87 Continue with Rocephin 1 g every 24h Patient placed on IV fluids at maintenance Continue to monitor vital signs Follow-up: Urine culture (2) Major depression Code(s): F32.9 - Major depressive disorder, single episode, unspecified Status : Acute Plan: Patient with a chronic history of depressive disorder associated with purging eating disorder. Her eating disorder is currently on remission. She has had worsening depressive symptoms for the past 4 years with unsuccessful therapy. Currently patient has had 9 days with severe depressive symptoms. Decrease p.o. intake, anhedonia, depressed mood, low energy, poor concentration and psychomotor retardation. She denies suicidal ideation or sleep difficulties Stepdaughter Ale reports patient has lost 5 pounds during this time Of note: Patient has been on multiple psychiatric medications for her depression without any significant improvement of symptoms. Some of these medications include: Wellbutrin (caused mood disturbance and agitation), Zoloft , mirtazapine, and amitriptyline did not have any effect on her mood. Patient has also been on trazodone which initially improved her insomnia and mood however after the dose of 100mg was reached no effect was noted on her mood. Increase Abilify to 10 mg daily (additional 5 mg given) Monitor mood and food intake. psychiatry consulted, appreciate recommendations (3) Hypothyroid Code(s): E03.9 - Hypothyroidism, unspecified Status: Acute Plan: Patient with history of hypothyroid TSH of 0.159, free T4/T3= 1.36/3.82 Daughter reports that the thyroid medication has helped improve patient's depressive mood however low TSH may indicate need for decrease in dosage Continue with home medication for now (4) Nutrition, metabolism, and development symptoms Code(s): R63.8 - Other symptoms and signs concerning food and fluid intake Status: Acute Plan: Fluids: 100mls/hr Electrolytes: Replete as needed Nutrition: Regular diet DVT prophylaxis: SCDs
[2017-11-05 00:07] LABS: Amphetamine Screen,Urine Neg (Neg); Barbiturate Screen,Urine Neg (Neg); Cannabinoid Screen,Urine Neg (Neg); Cocaine Screen,Urine Neg (Neg)
--- NOTE | 2017-11-05 00:14 | ED ---
HPI General Chief complaint: Urogenital-Female Stated complaint: Time Seen by Provider: 11/04/17 20:27 History of Present Illness HPI narrative: Patient 79-year-old female presents emergency department with her stepdaughter for evaluation of depression. Preceptor the patient has been in bed for the past 11 days and has been very reluctant to eat or drink anything. Patient's family states that they are having to force feed her. She has been on multiple medications in the past some of which have worked and then she discontinues her medications. Patient did relate an intermittent complaint of some dysuria. No chest pain no shortness of breath no abdominal pain no nausea vomiting. Also has a history of hypothyroidism. Patient's family also states that they have tried to admit her in the past and the patient is refused. Symptoms are moderate broaching on severe, duration is at least 11 days, has happened in the past several times, associated signs symptoms in context as above per Related Data Home Medications Medication Instructions Recorded Confirmed aripiprazole [Abilify] 5 mg PO DAILY 11/04/17 11/04/17 thyroid (pork) [Nature-Throid] 65 mg PO DAILY 11/04/17 11/04/17 Allergies Allergy/AdvReac Type Severity Reaction Status Date / Time No Known Allergies AdvReac Unknown Uncoded 05/05/17 23:17 Review of Systems ROS: all other systems reviewed are negative PMFSH Medical History Medical History Hypothyroid (Acute) Manic depressive disorder (Acute) Social History Social History Second Hand Smoke Exposure: No Smoking Status: Never smoker How Often Do You Have a Drink Containing Alcohol: Monthly or less Recent Travel in [facility] within the Last 8 Weeks: No Recent Out of Country Travel within the Last 8 Weeks: No Immunization History Tetanus Immunization: Unsure Exam Narrative Exam Narrative: GENERAL: Well-developed well-nourished, no obvious distress. SKIN: Focused skin assessment warm/dry. Mild decrease skin turgor. HEAD: Atraumatic. Normocephalic. EYES: Pupils equal and round. No scleral icterus. No injection or drainage. ENT: No nasal bleeding or discharge. Mucous membranes pink and moist. NECK: Trachea midline. No JVD. CARDIOVASCULAR: Regular rate and rhythm. No murmur appreciated. RESPIRATORY: No accessory muscle use. Clear to auscultation. Breath sounds equal bilaterally. GASTROINTESTINAL: Abdomen soft, non-tender, nondistended. Hepatic and splenic margins not palpable. MUSCULOSKELETAL: No obvious deformities. No clubbing. No cyanosis. No edema. NEUROLOGICAL: Awake and alert. No obvious cranial nerve deficits. Motor grossly within normal limits. Normal speech. PSYCHIATRIC: Withdrawn, when asked about depression she ignores the question, denies suicidal homicidal ideation. Course Initial Documented Vital Signs Temperature 98.2 F 11/04/17 14:39 Pulse Rate 103 H 11/04/17 14:39 Respiratory Rate 18 11/04/17 14:39 Blood Pressure 164/74 H 11/04/17 14:39 Pulse Oximetry 97 11/04/17 14:39 Last Documented Vital Signs Temperature 98.2 F 11/04/17 14:39 Pulse Rate 103 H 11/04/17 14:39 Respiratory Rate 18 11/04/17 14:39 Blood Pressure 164/74 H 11/04/17 14:39 Pulse Oximetry 97 11/04/17 14:39 Medical Decision Making MDM Narrative Medical decision making narrative: Patient room to the emergency department, appears to have UTI which is complicating her depression. Was given a dose of Rocephin, increased TSH but normal free T3 and free T4. Discussed at length with the patient and daughter, she has had multiple cognitive assessments in the past showing no dementia. I highly recommend that she be admitted to the hospital for complicated UTI and possible hypothyroidism and then consultations to psychiatry. She may do well on med psych however for the time being of discussed the patient with the residents for observation status and they are agreeable. Differential Diagnosis Differential Diagnosis: Depression, dementia, UTI, sepsis unlikely, hypothyroidism, failure to thrive Lab Data Result diagrams: 11/04/17 20:50 11/04/17 20:50 Lab Results 11/04/17 11/04/17 11/04/17 Range/Units 20:45 20:50 20:50 WBC 6.4 (4.0-11.0) th/mm3 RBC 4.61 (4.00-5.30) mil/mm3 Hgb 15.0 (11.6-15.3) gm/dL Hct 44.2 (35.0-46.0) % MCV 95.9 (80.0-100.0) fL MCH 32.7 (27.0-34.0) pg MCHC 34.0 (32.0-36.0) % RDW 13.9 (11.6-17.2) % Plt Count 340 (150-450) th/mm3 MPV 7.6 (7.0-11.0) fL Neut % (Auto) 49.2 (16.0-70.0) % Lymph % (Auto) 39.8 (9.0-44.0) % [place] % (Auto) 8.6 H (0.0-8.0) % Eos % (Auto) 1.5 (0.0-4.0) % Baso % (Auto) 0.9 (0.0-2.0) % Neut # (Auto) 3.2 (1.8-7.7) th/mm3 Lymph # (Auto) 2.6 (1.0-4.8) th/mm3 [place] # (Auto) 0.6 (0.0-0.9) th/mm3 Eos # (Auto) 0.1 (0.0-0.4) th/mm3 Baso # (Auto) 0.1 (0.0-0.2) th/mm3 WBC Differential . Differential Comment Auto diff final Sodium 139 (136-145) meq/L Potassium 3.9 (3.5-5.1) meq/L Chloride 102 (98-107) meq/L Carbon Dioxide 27.4 (21.0-32.0) meq/L Anion Gap 10 (5-15) meq/L BUN 20 H (7-18) mg/dL Creatinine 0.70 (0.50-1.00) mg/dL Estimated GFR 79 L (>89) mL/min Random Glucose 99 (74-106) mg/dL Calcium 9.8 (8.5-10.1) mg/dL Total Bilirubin 0.7 (0.2-1.0) mg/dL AST 19 (15-37) U/L ALT 32 (10-53) U/L Alkaline Phosphatase 91 (45-117) U/L Total Protein 8.3 H (6.4-8.2) g/dL Albumin 4.0 (3.4-5.0) g/dL TSH 0.159 L (0.358-3.740) uIU/mL Free T4 (0.76-1.46) ng/dL Free T3 (2.18-3.98) pg/mL Urine Color Faina (Yellw/Straw) Urine Clarity Turbid H (Clear) Urine pH 8.0 (5.0-8.5) Ur Specific [place] 1.019 (1.002-1.035) Urine Protein 30 H (Neg-Trace) mg/dL Urine Glucose (UA) Negative (Negative) mg/dL Urine Ketones Trace H (Negative) mg/dL Urine Occult Blood Negative (Negative) Urine Nitrate Negative (Negative) Urine Bilirubin Negative (Negative) Urine Urobilinogen Less than 2 (Less than 2) mg/dL Ur Leukocyte Esterase Moderate H (Negative) Urine WBC 87 H (0-5) /hpf Ur Squamous Epith Cells <1 (0-5) /hpf Triple Phos Crystals Few H (None) /hpf Amorphous Sediment Few H (None) /hpf Urine Bacteria Many H (None) /hpf Serum Alcohol Less than 3 (0-5) mg/dL 11/04/17 Range/Units 20:50 WBC (4.0-11.0) th/mm3 RBC (4.00-5.30) mil/mm3 Hgb (11.6-15.3) gm/dL Hct (35.0-46.0) % MCV (80.0-100.0) fL MCH (27.0-34.0) pg MCHC (32.0-36.0) % RDW (11.6-17.2) % Plt Count (150-450) th/mm3 MPV (7.0-11.0) fL Neut % (Auto) (16.0-70.0) % Lymph % (Auto) (9.0-44.0) % [place] % (Auto) (0.0-8.0) % Eos % (Auto) (0.0-4.0) % Baso % (Auto) (0.0-2.0) % Neut # (Auto) (1.8-7.7) th/mm3 Lymph # (Auto) (1.0-4.8) th/mm3 [place] # (Auto) (0.0-0.9) th/mm3 Eos # (Auto) (0.0-0.4) th/mm3 Baso # (Auto) (0.0-0.2) th/mm3 WBC Differential Differential Comment Sodium (136-145) meq/L Potassium (3.5-5.1) meq/L Chloride (98-107) meq/L Carbon Dioxide (21.0-32.0) meq/L Anion Gap (5-15) meq/L BUN (7-18) mg/dL Creatinine (0.50-1.00) mg/dL Estimated GFR (>89) mL/min Random Glucose (74-106) mg/dL Calcium (8.5-10.1) mg/dL Total Bilirubin (0.2-1.0) mg/dL AST (15-37) U/L ALT (10-53) U/L Alkaline Phosphatase (45-117) U/L Total Protein (6.4-8.2) g/dL Albumin (3.4-5.0) g/dL TSH (0.358-3.740) uIU/mL Free T4 1.36 (0.76-1.46) ng/dL Free T3 3.82 (2.18-3.98) pg/mL Urine Color (Yellw/Straw) Urine Clarity (Clear) Urine pH (5.0-8.5) Ur Specific [place] (1.002-1.035) Urine Protein (Neg-Trace) mg/dL Urine Glucose (UA) (Negative) mg/dL Urine Ketones (Negative) mg/dL Urine Occult Blood (Negative) Urine Nitrate (Negative) Urine Bilirubin (Negative) Urine Urobilinogen (Less than 2) mg/dL Ur Leukocyte Esterase (Negative) Urine WBC (0-5) /hpf Ur Squamous Epith Cells (0-5) /hpf Triple Phos Crystals (None) /hpf Amorphous Sediment (None) /hpf Urine Bacteria (None) /hpf Serum Alcohol (0-5) mg/dL Discharge Plan Discharge Disposition Patient Disposition: 30 Still Patient Discharge Details Diagnosis: Cystitis, Depression Physicians Team ED Provider: Jerson Hyman Primary Care Provider: Pillo To Attending Provider: Sheryl Oliveira Status ED Status: Admitted Observation Patient
[2017-11-05 00:15] LABS: Opiate Screen,Urine Neg (Neg)
[2017-11-05] MEDS: Sod Chloride 0.9% Inj 1,000 ML IV.CONT SCH ×2 (00:24→13:23)
[2017-11-05] MEDS ORDERED: ARIPiprazole 5 MG Tablet PO ONE (00:27)
[2017-11-05] MEDS ORDERED: Enoxaparin Inj 30 MG/0.3 ML Syringe SQ SCH (05:00)
--- NOTE | 2017-11-05 08:34 | P.PNFP ---
Subjective Interval history: No acute events overnight. Afebrile, vitals stable. Patient seen and examined this morning. Patient and stepdaughter report the patient's urine output has significantly increased. The patient denies any further dysuria. Denies pyuria, hematuria, fevers or chills, chest pain, dyspnea, abdominal or back pain. She states she feels much improved since admission without specific complaints at this time. Patient states she "slept soundly" last night. Endorses symptoms of major depression. Endorses trying multiple medications for depression in the past none of which she states seems to have helped her. She states that she is currently taking Abilify since mid September and reports that she has not yet felt a difference with this either. <Tung Mccullough - 11/05/17 09:22> Results - Labs Result diagrams: 11/04/17 20:50 11/04/17 20:50 <Sheryl Oliveira - 11/05/17 13:23> Abnormal lab results 11/04/17 11/04/17 11/04/17 Range/Units 20:45 20:50 20:50 Faulk % (Auto) 8.6 H (0.0-8.0) % BUN 20 H (7-18) mg/dL Estimated GFR 79 L (>89) mL/min Total Protein 8.3 H (6.4-8.2) g/dL TSH 0.159 L (0.358-3.740) uIU/mL Urine Clarity Turbid H (Clear) Urine Protein 30 H (Neg-Trace) mg/dL Urine Ketones Trace H (Negative) mg/dL Ur Leukocyte Esterase Moderate H (Negative) Urine WBC 87 H (0-5) /hpf Triple Phos Crystals Few H (None) /hpf Amorphous Sediment Few H (None) /hpf Urine Bacteria Many H (None) /hpf Short CBC 11/04/17 Range/Units 20:50 WBC 6.4 (4.0-11.0) th/mm3 Hgb 15.0 (11.6-15.3) gm/dL Hct 44.2 (35.0-46.0) % Plt Count 340 (150-450) th/mm3 BMP 11/04/17 20:50 Sodium 139 Potassium 3.9 Chloride 102 Carbon Dioxide 27.4 BUN 20 H Creatinine 0.70 Calcium 9.8 Liver Function 08/07/18 Range/Units 20:50 Total Bilirubin 0.7 (0.2-1.0) mg/dL AST 19 (15-37) U/L ALT 32 (10-53) U/L Alkaline Phosphatase 91 (45-117) U/L Albumin 4.0 (3.4-5.0) g/dL Urine 11/04/17 Range/Units 20:45 Urine Color Faina (Yellw/Straw) Urine Clarity Turbid H (Clear) Urine pH 8.0 (5.0-8.5) Ur Specific [place] 1.019 (1.002-1.035) Urine Protein 30 H (Neg-Trace) mg/dL Urine Glucose (UA) Negative (Negative) mg/dL <Sheryl Oliveira - 11/05/17 13:23> Abnormal lab results 11/04/17 11/04/17 11/04/17 Range/Units 20:45 20:50 20:50 Faulk % (Auto) 8.6 H (0.0-8.0) % BUN 20 H (7-18) mg/dL Estimated GFR 79 L (>89) mL/min Total Protein 8.3 H (6.4-8.2) g/dL TSH 0.159 L (0.358-3.740) uIU/mL Urine Clarity Turbid H (Clear) Urine Protein 30 H (Neg-Trace) mg/dL Urine Ketones Trace H (Negative) mg/dL Ur Leukocyte Esterase Moderate H (Negative) Urine WBC 87 H (0-5) /hpf Triple Phos Crystals Few H (None) /hpf Amorphous Sediment Few H (None) /hpf Urine Bacteria Many H (None) /hpf Short CBC 11/04/17 Range/Units 20:50 WBC 6.4 (4.0-11.0) th/mm3 Hgb 15.0 (11.6-15.3) gm/dL Hct 44.2 (35.0-46.0) % Plt Count 340 (150-450) th/mm3 BMP 11/04/17 20:50 Sodium 139 Potassium 3.9 Chloride 102 Carbon Dioxide 27.4 BUN 20 H Creatinine 0.70 Calcium 9.8 Liver Function 11/04/17 Range/Units 20:50 Total Bilirubin 0.7 (0.2-1.0) mg/dL AST 19 (15-37) U/L ALT 32 (10-53) U/L Alkaline Phosphatase 91 (45-117) U/L Albumin 4.0 (3.4-5.0) g/dL Urine 11/04/17 Range/Units 20:45 Urine Color Faina (Yellw/Straw) Urine Clarity Turbid H (Clear) Urine pH 8.0 (5.0-8.5) Ur Specific [place] 1.019 (1.002-1.035) Urine Protein 30 H (Neg-Trace) mg/dL Urine Glucose (UA) Negative (Negative) mg/dL <ZanayawdionteTung - 11/05/17 08:34> Physical Exam Vital signs: Vital Signs 11/04/17 14:39 11/05/17 03:13 11/05/17 06:36 Temperature 98.2 F 98.1 F Pulse Rate 103 H 68 81 Respiratory Rate 18 16 16 Blood Pressure 164/74 H 140/85 135/78 Pulse Oximetry 97 99 11/05/17 09:20 11/05/17 13:13 Temperature Pulse Rate 90 74 Respiratory Rate 20 16 Blood Pressure 135/61 135/61 Pulse Oximetry 96 97 Intake & Output 11/04/17 11/05/17 11/05/17 18:59 06:59 18:59 Weight 73.482 kg <Sheryl Oliveira - 11/05/17 13:23> Vital Signs 11/04/17 14:39 11/05/17 03:13 11/05/17 06:36 Temperature 98.2 F 98.1 F Pulse Rate 103 H 68 81 Respiratory Rate 18 16 16 Blood Pressure 164/74 H 140/85 135/78 Pulse Oximetry 97 99 Intake & Output 11/04/17 11/05/17 11/05/17 18:59 06:59 18:59 Weight 73.482 kg <ZanayawdionteTung - 11/05/17 08:34> Narrative: GENERAL: NAD, pleasant, flat affect, sitting comfortably on side of bed NEURO: Alert. Oriented x4. Normal speech. chartered financial analyst grossly intact. Motor grossly normal. SKIN: Warm and dry. HEAD: Normocephalic. Atraumatic. EYES: EOMI. No scleral icterus. No injection or drainage. ENT: No nasal drainage. Moist mucous membranes. NECK: Supple, trachea midline. No lymphadenopathy. CARDIOVASCULAR: Regular rate and rhythm without murmurs, rubs, or gallops. Peripheral pulses 2+. RESPIRATORY: Breath sounds clear to auscultation and equal bilaterally, without wheezes, rales, or rhonchi. No accessory muscle use. GASTROINTESTINAL: Abdomen soft, nontender, nondistended. No rebound tenderness. No guarding. MUSCULOSKELETAL: No lower extremity edema. BACK: Nontender without obvious deformity. No CVA tenderness. PSYCH: Flat affect with psychomotor retardation. Good insight and judgement. Linear thought process. Slowed speech. <ZanayawdionteTung - 11/05/17 09:22> Assessment and Plan - Assessment (1) UTI (urinary tract infection) Code(s): N39.0 - Urinary tract infection, site not specified Status: Acute (2) Major depression Code(s): F32.9 - Major depressive disorder, single episode, unspecified Status : Acute (3) Hypothyroid Code(s): E03.9 - Hypothyroidism, unspecified Status: Acute (4) Nutrition, metabolism, and development symptoms Code(s): R63.8 - Other symptoms and signs concerning food and fluid intake Status: Acute <Sheryl Oliveira Jimmy - 11/05/17 13:23> (1) UTI (urinary tract infection) Code(s): N39.0 - Urinary tract infection, site not specified Status: Acute Plan: Patient with history of dysuria, increased urgency and decreased urine output for several days prior to admission associated with decreased p.o. intake. 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 Her eating disorder is currently in remission. She has had worsening depressive symptoms for the past 4 years with unsuccessful therapy. Currently patient has had 9 days with severe depressive symptoms. Decrease p.o. intake, anhedonia, depressed mood, low energy, poor concentration and psychomotor retardation. She denies suicidal ideation or sleep difficulties Stepdaughter Ale reports patient has lost 5 pounds during this time Of note: Patient has been on multiple psychiatric medications for her depression without any significant improvement of symptoms. Some of these medications include: Wellbutrin (caused mood disturbance and agitation), Zoloft , mirtazapine, and amitriptyline did not have any effect on her mood. Patient has also been on trazodone which initially improved her insomnia and mood however after the dose of 100mg was reached no effect was noted on her mood. Psychiatry consulted, appreciate recommendations Hold Fransiscofy for now ahead of psychiatry consultation (3) Hypothyroid Code(s): E03.9 - Hypothyroidism, unspecified Status: Acute Plan: Patient with history of hypothyroidism TSH of 0.159, free T4/T3 1.36/3.82 Daughter reports that patient's thyroid medication has helped improve patient's depressive mood Continue home biothyroid (4) Nutrition, metabolism, and development symptoms Code(s): R63.8 - Other symptoms and signs concerning food and fluid intake Status: Acute Plan: Fluids: NS at 100 cc/hr Electrolytes: Replete as needed Nutrition: Regular diet DVT prophylaxis: Lovenox, b/l SCDs <Tung Mccullough - 11/05/17 09:27> - Attending Attestation The exam, history, and the medical decision-making described in the above note were completed with the assistance of the resident physician. I reviewed and agree with the findings presented. I attest that I had a [id number] encounter with the patient on the same day, and personally performed and documented my assessment and findings in the medical record. On discussion with this lady and her stepdaughter, though this patient has refused to be admitted voluntarily to psychiatry inpatient, now she is agreeable to this. She does not have a suicidal ideation but her depression has been both long lasting and severe. She has a strong family history with her father 2 sisters and her all having depression as well and has her sisters son and daughter. Psychiatry is consulted and we appreciate their advice. I do not know if something along the lines of ECT could be recommended. She has had multiple different trials of medications and counseling. <Sheryl Oliveira - 11/05/17 13:23>
[2017-11-05] MEDS ORDERED: THYROID 65 MG PO SCH (09:00)
[2017-11-05] MEDS ORDERED: Thyroid 60 MG Tablet PO SCH (09:30)
[2017-11-05 13:13] VITALS: RESP 16
[2017-11-05 13:56] LABS: Baso % (Auto) 0.7 % (0.0-2.0); Eos % (Auto) 0.6 % (0.0-4.0); Hematocrit 38.5 % (35.0-46.0); Hemoglobin 13.1 gm/dL (11.6-15.3); Lymph # (Auto) 1.6 th/mm3 (1.0-4.8); Mean Corpuscular HGB Conc 34.1 % (32.0-36.0); Mean Corpuscular Hemoglobin 32.5 pg (27.0-34.0); Mean Corpuscular Volume 95.2 fL (80.0-100.0); Mono # (Auto) 0.5 th/mm3 (0.0-0.9); Mono % (Auto) 8.1 % (0.0-8.0); Neut # (Auto) 3.7 th/mm3 (1.8-7.7); Neut % (Auto) 63.6 % (16.0-70.0); Platelet Count 298 th/mm3 (150-450); Red Blood Count 4.04 mil/mm3 (4.00-5.30); Red Cell Distribution Width 13.9 % (11.6-17.2); White Blood Count 5.7 th/mm3 (4.0-11.0)
--- NOTE | 2017-11-05 14:08 | P.CONPSY ---
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 Patient seen in her room with RN patient's stepdaughter. Patient is alert fairly well oriented female appears about his stated age sitting calmly on her gurney. She is alert she knows she is in [facility] and it is October 2017 he does know her birthday also. She states she ate well today she denies suicidality homicidality voices or visions. She does acknowledge her past psychiatric history sitting Dr. John Hyde within the past year or so though they have released her from the practice because she did not follow through with counseling or some other suggestions. She also went to a counselor for a period of time without much success. There seems there is some reluctance to cooperate with her mental health professionals. She does see a primary care physician. It appears she has been on multiple trials of various medications without much success. She is now on a trial of Abilify 5 mg daily she appears to be tolerating that. Patient's stepdaughter states she has had episodes of taking to her bed with poor oral intake. This seemed to resolve with her own accord after period of time. They deny any prior inpatient psychiatric care. Patient had been for 40+ years has been for a number of years. At this time I feel patient does not meet criteria for an acute psychiatric hospitalization. She is alert fairly well oriented for her age she is eating and she is getting treatment for her urinary tract infection. At this time I would recommend continuation of her Abilify 5 mg daily. Is okay by psych for discharge when she is medically clear and stable. I would have case management work with this lady to find a psychiatrist in her insurance panel and perhaps an individual counselor also. Thanks for consult I will sign off at the present time please reconsult as necessary Review of Systems Please see med surge assessments PMFSH - History History Provided By: Patient, Family Member - Medical History Medical History: Medical History (Last Reviewed 11/05/17 @ 02:12 by Carl Blue MD, R2) Eating disorder in remission Hypothyroid Manic depressive disorder - Surgical History Surgical History: Surgical History (Last Updated 11/05/17 @ 02:15 by Carl Blue MD, R2) History of esophagogastroduodenoscopy (EGD) History of partial hysterectomy - Family History Family History: Family History (Last Updated 11/05/17 @ 02:17 by Carl Blue MD, R2) Sister Depression Sister Depression Sister Depression Mother COPD (chronic obstructive pulmonary disease) Mother CHF (congestive heart failure) - Tobacco History Second Hand Smoke Exposure: No Smoking Status: Former smoker (quit > 40 yrs ago) - Alcohol History How Often Do You Have a Drink Containing Alcohol: Monthly or less - Travel History Recent Travel in the [place] Within the Last 8 Weeks: No Recent Travel Out of the Country Within the Last 8 Weeks: No - Immunization History Tetanus Immunization: Unsure Medications and Allergies Active Medications: Active Medications Al Hydroxide/Mg Hydroxide (Milk Of Magnesia Liq) 30 ml PO Q12H PRN PRN Reason: Mild Constipation Bisacodyl (Dulcolax Supp) 10 mg RECTAL DAILY PRN PRN Reason: SEVERE CONSITIPATION Enoxaparin Sodium (Lovenox Inj) 30 mg SQ Q24H [facility] Last Admin: 11/05/17 05:30 Dose: 30 mg Sodium Chloride (Ns Inj) 1,000 mls @ 100 mls/hr IV.CONT .Q10H [facility] Last Admin: 11/05/17 13:23 Dose: 100 mls/hr Ceftriaxone Sodium 1,000 mg/ (Sodium Chloride) 100 mls @ 200 mls/hr IV.SIG Q24H [facility] Lactulose (Lactulose Liq) 30 ml PO DAILY PRN PRN Reason: SEVERE CONSITIPATION Thyroid (Pork) [ (Nature-Throid] 65 Mg) 0 each PO DAILY JEOVANY Senna/Docusate Sodium (Jazmine-Colace) 1 tab PO BID PRN PRN Reason: CONSTIPATION Sennosides (Senokot) 17.2 mg PO Q12H PRN PRN Reason: Moderate Constipation Temazepam (Restoril) 15 mg PO HS PRN PRN Reason: INSOMNIA Allergies Allergy/AdvReac Type Severity Reaction Status Date / Time No Known Allergies AdvReac Unknown Uncoded 05/05/17 23:17 Home Medications Medication Instructions Recorded Confirmed Type aripiprazole [Abilify] 5 mg PO DAILY 11/04/17 11/04/17 History thyroid (pork) [Nature-Throid] 65 mg PO DAILY 11/04/17 11/04/17 History Exam Vital signs: Vital Signs 11/04/17 14:39 11/05/17 03:13 11/05/17 06:36 Temperature 98.2 F 98.1 F Pulse Rate 103 H 68 81 Respiratory Rate 18 16 16 Blood Pressure 164/74 H 140/85 135/78 Pulse Oximetry 97 99 11/05/17 09:20 11/05/17 13:13 Temperature Pulse Rate 90 74 Respiratory Rate 20 16 Blood Pressure 135/61 135/61 Pulse Oximetry 96 97 Intake & Output 11/04/17 11/05/17 11/05/17 18:59 06:59 18:59 Intake Total 1000 / 1000 Balance 1000 / 1000 Weight 73.482 kg Intake: IV 1000 / 1000 NS Inj 1,000 ML @ 100 mls/hr IV 1000 / 1000 .CONT .Q10H [facility] Rx#:[id number] Narrative: Patient is laying calmly on gurney she is in no respiratory distress, she is in no acute distress, no complaints of abdominal pain. Mental Status Examination Appearance: Appropriate Consciousness: Alert Orientation: Person, Place, Date/Time Motor Activity: Other (Unable to ascertain patient laying on a gurney) Speech: Unremarkable Language: Adequate, Other (Some very mild word seekingStepdaughter) Fund of Knowledge: Adequate Attention and Concentration: Adequate (Fair) Memory: Unremarkable (Fair) Mood: Other (To mildly dysphoric) Affect: Other (Good range and intensity) Thought Process & Associations: Intact Thought Content: Appropriate Hallucination Type: None Delusion Type: None Suicidal Ideation: No Suicidal Plan: No Suicidal Intention: No Homicidal Ideation: No Homicidal Plan: No Homicidal Intention: No Insight: Poor Judgment: Poor Assessment and Plan - Assessment (1) Major depressive disorder, recurrent episode, in partial remission Code(s): F33.41 - Major depressive disorder, recurrent, in partial remission Status: Acute - Plan Plan: Estimated LOS: [] days Would suggest continuation of Abilify 5 mg daily, it is okay by psych for discharge when medically clear and stable. Would refer to psychiatrist and counselor in the community thanks for consult will sign off the present time Justification for Continued Inpatient Stay: To be determined by med surge team Discharge Planning: To be determined by med surge team
[2017-11-05 14:24] LABS: Anion Gap 9 meq/L (5-15); Blood Urea Nitrogen 12 mg/dL (7-18); Calcium 8.5 mg/dL (8.5-10.1); Carbon Dioxide 27.3 meq/L (21.0-32.0); Chloride 107 meq/L (98-107); Glomerular Filtration Rate Greater Than 89 mL/min (>89); Glucose,Random 98 mg/dL (74-106); Potassium 3.6 meq/L (3.5-5.1); Sodium 143 meq/L (136-145)
[2017-11-05 17:09] VITALS: BP 176/83; PULSE 83; TEMP 97.5; O2SAT 98
[2017-11-06] MEDS ORDERED: ARIPiprazole 5 MG Tablet PO SCH (09:00)
== END 2017-11-05 21:49 | disposition home or self-care (01) ==
LOC: NEDA 14:33 → NEPD 14:33 → NEPHCDU 14:33 → NEDA 11-05 15:25 → NEPHCDU 11-05 15:36
PROVIDERS: ADMIT Family Medicine; ATTEND Family Medicine
DX: Z79.899 Other long term (current) drug therapy; E03.9 Hypothyroidism, unspecified; N30.90 Cystitis, unspecified without hematuria; E86.0 Dehydration; F33.41 Major depressive disorder, recurrent, in partial remission; G47.00 Insomnia, unspecified